=== PATIENT | male | born 1945 | race Hispanic/Latino ===

== ENCOUNTER 2016-07-13 09:06 | Day surgery (SDC) | payer MEDICARE ==
[2016-07-13 10:43] LABS: INR 1.16 (0.87-1.13)
[2016-07-13 10:44] LABS: Partial Thromboplastin Time 30.9 Sec. (24.2-36.6)
[2016-07-13] MEDS ORDERED: NORCO 5/325 ONE (13:46)
[2016-07-13] MEDS ORDERED: NORCO 5/325 PO ONE (13:47)
[2016-07-13 14:22] VITALS: BP 115/66
--- NOTE | 2016-07-14 08:31 | Fluoroscopy Report ---
FLUOROSCOPY MYELOGRAM LUMBOSACRAL: HISTORY: Back pain. DESCRIPTION OF PROCEDURE: Informed consent was obtained. Sterile technique was utilized. 1% lidocaine for skin anesthesia. Using fluoroscopy guidance, lumbar puncture was performed at the L3-4 level. There was spontaneous return of clear CSF. 12 cc of Omnipaque-180 was administered intrathecally. The contrast agent was free-flowing throughout the lumbosacral region. No high-grade stenosis or large epidural defect is identified. IMPRESSION: Successful lumbosacral myelogram. No high-grade central canal stenosis is appreciated. Please await further evaluation CT lumbar myelogram report.
--- NOTE | 2016-07-14 09:28 | Cat Scan Report ---
CT LUMBAR SPINE WITH CONTRAST: HISTORY: Low back pain, radiculopathy. TECHNIQUE: Helical CT following intrathecal contrast administration. Sagittal and coronal reformatted images. The patient was scanned in the supine and prone positions. COMPARISON: No relevant comparison. FINDINGS: On the coronal images, there is mild dextroscoliosis from T12-L4 estimated at 13 degrees. There is normal height and alignment of the vertebra on the sagittal images. No evidence for acute fracture, compression deformity, subluxation or bone lesion. Ipojlszk-es-zbyxbm degenerative disc disease and facet arthropathy are identified at all levels. Vacuum phenomenon is noted at T12-L1, L2-3, L3-4 and L5-S1. L1-2: A moderate circumferential spur disc complex is identified. Moderate facet arthropathy, left greater than right. No herniation or central canal stenosis. There is mild left neural foraminal narrowing estimated at 25-50%. L2-3: A moderate circumferential spur disc complex is present. Mild facet arthropathy. No herniation or central canal stenosis. No significant neural foraminal narrowing. L3-4: A moderate circumferential spur disc complex is identified. No herniation or central canal stenosis. Mild facet arthropathy. No significant neural foraminal narrowing. L4-5: A moderate circumferential spur disc complex is identified. Mild facet arthropathy. No central canal stenosis. There is 25-50% left neural foraminal narrowing and 50-75% right neural foraminal narrowing. L5-S1: A mild circumferential spur disc complex is identified. The facet joints are unremarkable. Mild bilateral neural foraminal narrowing is estimated at 25-50%. IMPRESSION: Scoliosis with multilevel degenerative disc disease and facet arthropathy, as outlined above. No central canal stenosis or herniation. No fracture. There is [id number] multilevel neural foraminal narrowing. The right L4-5 neural foramen appears to be most affected where there is 50-75% stenosis. See above.
--- NOTE | 2016-07-14 10:40 | Short Stay Summary ---
Short Stay Documentation Date of service: 07/13/16 Narrative H&P: back pain , left knee pain - History Principal diagnosis: radiculopathy, back pain H&P: obtained from office - Allergies and Medications Current Medications: Allergies No Known Allergies Allergy (Unverified 03/28/13 07:49) Home Medications Medication Instructions Recorded Confirmed Last Taken Type Amiodarone [Cordarone 200 MG TAB] 200 tab PO DAILY 11/27/13 07/13/16 07/13/16 History Metoprolol Tartrate [Metoprolol 25 tab PO TID 11/27/13 07/13/16 07/13/16 History Tartrate] Simvastatin [Simvastatin] 1 tab PO DAILY 11/27/13 07/13/16 07/12/16 History Warfarin [Coumadin] 5 mg PO DAILY 11/27/13 07/13/16 07/10/16 History - Physical exam General appearance: no acute distress - Brief post op/procedure progress note Date of procedure: 07/14/16 Pre-op diagnosis: back pain, radiculopathy Post-op diagnosis: same Procedure: Lumbosacral myelogram Anesthesia: local Surgeon: JASMINE SEGUNDO Estimated blood loss: none Pathology: none Condition: stable - Hospital course Hospital course: uneventful - Disposition Condition at discharge: Good Short Stay Discharge Plan Follow up with: LEXI WATSON MD [Primary Care Provider] - 7 Days
== END 2016-07-13 09:07 ==
LOC: OPU 09:06 → EDSTATUS 09:30
PROVIDERS: ATTEND Orthopaedic Surgery
DX: M51.37 Other intervertebral disc degeneration, lumbosacral region (principal); M12.88 Other specific arthropathies, not elsewhere classified, other specified site; M41.9 Scoliosis, unspecified
CPT/HCPCS: 36415; 62304; 72132; 85610; 85730; Q9965